=== PATIENT | male | born 1965 | race Caucasian/White ===

== ENCOUNTER 2017-05-27 03:26 | Inpatient (IN) | payer MEDICARE, MEDICAID ==
[~2017-05-27] VITALS: Ht 170.2 cm; Wt 68.2 kg
[2017-05-27] VITALS (8 sets, daily range): BP systolic 81–98; BP diastolic 45–64
[2017-05-27] MEDS ORDERED: MORPHINE SULFATE 4 MG/ML CPJ (NOT FOR IM USE) IV STA (03:58)
[2017-05-27] MEDS ORDERED: SODIUM CHLORIDE 0.9% 1,000 ML IV ONE ×2 (03:58→06:04)
[2017-05-27] MEDS ORDERED: ONDANSETRON HCL 4MG/2ML VIAL IV STA (03:58)
[2017-05-27 04:30] LABS: BASOPHILS % 0.2 % (0.0-2.0); EOSINOPHILS % 0.9 % (0.0-5.0); HEMATOCRIT. 43.3 % (42.0-52.0); HEMOGLOBIN. 14.4 g/dL (14.0-18.0); LYMPHOCYTES % 8.7 % (20.0-50.0); MEAN CORPUSCULAR HEMOGLOBIN 30.1 pg (28.0-32.0); MEAN CORPUSCULAR VOLUME 90.8 fL (80.0-94.0); MEAN PLATELET VOLUME 10.7 fl (7.4-10.4); MONOCYTES % 10.4 % (2.0-8.0); NEUTROPHILS % 79.8 % (40.0-76.0); PLATELET 260 x1000/uL (130-400); RED BLOOD CELL COUNT 4.77 mill/uL (4.7-6.1); RED CELL DISTRIBUTION WIDTH 14.6 % (11.6-14.6)
[2017-05-27 04:36] LABS: INR 1.1
[2017-05-27 04:43] LABS: CARBON DIOXIDE 25 mEq/L (21-32); CHLORIDE 106 mEq/L (98-107)
[2017-05-27] MEDS ORDERED: PIPERACILLIN/TAZ 3.375G PREMIX 50 ML IV ONE (06:15)
[2017-05-27] MEDS ORDERED: VANCOMYCIN 1 G PREMIX 200 ML IV SCH (06:15)
[2017-05-27] MEDS ORDERED: HYDROMORPHONE HCL/PF 2MG/ML CPJ IV PRN (09:15)
[2017-05-27] MEDS ORDERED: IPRATROPIUM/ALBUTEROL 0.5-3(2.5)MG/3ML NEB HHN PRN (09:15)
[2017-05-27 09:28] LABS: GLUCOSE URINE NEGATIVE (NEGATIVE); KETONES URINE 2+ (NEGATIVE); LEUKOCYTE ESTERASE URINE 3+ (NEGATIVE); NITRITE URINE POSITIVE (NEGATIVE); OCCULT BLOOD URINE 3+ (NEGATIVE); PH URINE 7.5 (4.5-8.0); PROTEIN URINE 3+ (NEGATIVE); SPECIFIC GRAVITY URINE 1.013 (1.005-1.030)
[2017-05-27 09:31] LABS: CLARITY URINE CLOUDY (CLEAR); COLOR URINE BLOODY (YELLOW)
[2017-05-27] MEDS: SODIUM CHLORIDE 0.9% 1,000 ML IV SCH ×2 (11:55→21:02)
[2017-05-27] MEDS: VANCOMYCIN 1 G PREMIX 200 ML IV SCH ×2 (11:55→21:38)
[2017-05-27] MEDS ORDERED: ACETAMINOPHEN 500MG TABLET GT PRN (12:00)
[2017-05-27] MEDS: PIPERACILLIN/TAZ 3.375G PREMIX 50 ML IV SCH ×2 (13:22→23:39)
[2017-05-27] MEDS ORDERED: SODIUM CHLORIDE 0.9% 500 ML IV ONE (16:15)
[2017-05-27] MEDS ORDERED: GUAIFENESIN 200MG/10ML SUGAR FREE UDC NG PRN (16:30)
[2017-05-27] MEDS: ENOXAPARIN 40MG/0.4ML SYR SUBCUT SCH (16:41)
[2017-05-27] MEDS: MIDODRINE HCL 5MG TABLET PO SCH (16:45)
[2017-05-27 17:10] LABS: BG BASE EXCESS 0.6 mmol/L (-2.0-2.0); BG CARBOXYHEMOGLOBIN 0.3 % (0.5-1.5); BG DEOXYHEMOGLOBIN 2.2 % (0.0-5.0); BG FRACTION INSPIRED OXYGEN 30; BG HCO3 ACT 24.5 mmol/L (22.0-26.0); BG METHEMOGLOBIN 0.1 % (0.0-1.5); BG OXYGEN SATURATION 97.8 % (92.0-98.5); BG OXYHEMOGLOBIN 97.4 % (94.0-97.0); BG PH 7.438 (7.350-7.450); BG PO2 102.4 mmHg (75.0-100.0); BG SAMPLE SITE RIGHT RADIAL; BG TIDAL VOLUME(mL) 500 mL; BG TOTAL HEMOGLOBIN 13.5 g/dL (12.0-18.0); BG VENT MODE VENT - A/C; BG VENT RATE 12 set
[2017-05-27] MEDS ORDERED: SODIUM CHLORIDE 10% FOR INH 15ML VIAL NEB INH NR (18:00)
[2017-05-27] MEDS: DOPAMINE 400MG PREMIX 250 ML IV SCH (20:02)
[2017-05-27] MEDS: IPRATROPIUM/ALBUTEROL 0.5-3(2.5)MG/3ML NEB HHN SCH (20:08)
[2017-05-28] VITALS (12 sets, daily range): BP systolic 78–107; BP diastolic 43–71
[2017-05-28] MEDS: ACETYLCYSTEINE 100MG/ML 10% VIAL 4ML INH SCH ×2 (02:08→14:26)
[2017-05-28] MEDS: IPRATROPIUM/ALBUTEROL 0.5-3(2.5)MG/3ML NEB HHN SCH ×4 (02:09→16:32)
[2017-05-28] MEDS: MIDODRINE HCL 5MG TABLET PO SCH ×2 (03:30→17:43)
[2017-05-28] MEDS: VANCOMYCIN 1 G PREMIX 200 ML IV SCH ×2 (03:31→11:15)
[2017-05-28] MEDS: PIPERACILLIN/TAZ 3.375G PREMIX 50 ML IV SCH ×4 (05:57→23:54)
[2017-05-28] MEDS: SODIUM CHLORIDE 0.9% 1,000 ML IV SCH (05:57)
[2017-05-28 08:37] LABS: HEMATOCRIT. 31.1 % (42.0-52.0); MEAN CORPUSCULAR HEMOGLOBIN 29.5 pg (28.0-32.0); MEAN CORPUSCULAR VOLUME 91.4 fL (80.0-94.0); MEAN PLATELET VOLUME 10.9 fl (7.4-10.4); PLATELET 161 x1000/uL (130-400); RED BLOOD CELL COUNT 3.41 mill/uL (4.7-6.1); RED CELL DISTRIBUTION WIDTH 14.6 % (11.6-14.6)
[2017-05-28 08:38] LABS: CHLORIDE 110 mEq/L (98-107)
[2017-05-28 08:44] LABS: CARBON DIOXIDE 22 mEq/L (21-32)
[2017-05-28] MEDS: PANTOPRAZOLE SODIUM 40 MG/VIAL IV SCH (08:59)
[2017-05-28 10:18] LABS: BG BASE EXCESS 2.1 mmol/L (-2.0-2.0); BG CARBOXYHEMOGLOBIN 0.3 % (0.5-1.5); BG DEOXYHEMOGLOBIN 2.1 % (0.0-5.0); BG FRACTION INSPIRED OXYGEN 30; BG HCO3 ACT 26.1 mmol/L (22.0-26.0); BG METHEMOGLOBIN 0.1 % (0.0-1.5); BG OXYGEN SATURATION 97.9 % (92.0-98.5); BG OXYHEMOGLOBIN 97.5 % (94.0-97.0); BG PCO2 38.7 mmHg (35.0-45.0); BG PH 7.447 (7.350-7.450); BG PO2 114.9 mmHg (75.0-100.0); BG SAMPLE SITE RIGHT RADIAL; BG TIDAL VOLUME(mL) 500 mL; BG TOTAL HEMOGLOBIN 11.9 g/dL (12.0-18.0); BG VENT MODE VENT - A/C; BG VENT RATE 12 set
[2017-05-28] MEDS: DEXT 5%/0.45% NACL KCL 40MEQ/L 1,000 ML IV SCH ×2 (11:16→18:25)
[2017-05-28 12:26] LABS: PLATELET ESTIMATE NORMAL
[2017-05-28] MEDS ORDERED: SODIUM CHLORIDE 0.9% 1,000 ML IV ONE (13:30)
[2017-05-28] MEDS ORDERED: POTASSIUM CHLORIDE 20MEQ/PACKET NG SCH (13:45)
[2017-05-28] MEDS: ENOXAPARIN 40MG/0.4ML SYR SUBCUT SCH (17:00)
[2017-05-28] MEDS: DOPAMINE 400MG PREMIX 250 ML IV SCH (17:45)
[2017-05-28] MEDS: IPRATROPIUM/ALBUTEROL 0.5-3(2.5)MG/3ML NEB HHN PRN (20:08)
[2017-05-28] MEDS ORDERED: VANCOMYCIN 750 MG PREMIX 150 ML IV SCH (22:00)
[2017-05-29] VITALS (12 sets, daily range): BP systolic 87–112; BP diastolic 44–74
[2017-05-29] MEDS: IPRATROPIUM/ALBUTEROL 0.5-3(2.5)MG/3ML NEB HHN SCH ×4 (00:26→21:05)
[2017-05-29] MEDS: ACETYLCYSTEINE 100MG/ML 10% VIAL 4ML INH SCH ×5 (00:26→21:05)
[2017-05-29] MEDS: MIDODRINE HCL 5MG TABLET PO SCH ×2 (03:44→17:40)
[2017-05-29] MEDS: DEXT 5%/0.45% NACL KCL 40MEQ/L 1,000 ML IV SCH ×3 (03:45→19:29)
[2017-05-29] MEDS: PIPERACILLIN/TAZ 3.375G PREMIX 50 ML IV SCH ×3 (07:18→19:30)
[2017-05-29 07:42] LABS: HEMATOCRIT. 32.7 % (42.0-52.0); HEMOGLOBIN. 10.9 g/dL (14.0-18.0); MEAN CORPUSCULAR VOLUME 90.5 fL (80.0-94.0); MEAN PLATELET VOLUME 10.7 fl (7.4-10.4); PLATELET 121 x1000/uL (130-400); RED BLOOD CELL COUNT 3.61 mill/uL (4.7-6.1); RED CELL DISTRIBUTION WIDTH 14.4 % (11.6-14.6)
[2017-05-29 08:22] LABS: CARBON DIOXIDE 25 mEq/L (21-32); CHLORIDE 107 mEq/L (98-107); PHOSPHORUS 1.5 mg/dL (2.5-4.9)
[2017-05-29] MEDS: PANTOPRAZOLE SODIUM 40 MG/VIAL IV SCH (09:18)
[2017-05-29 10:07] LABS: PLATELET ESTIMATE NORMAL
[2017-05-29] MEDS ORDERED: LACTULOSE 20G/30ML UDC GT PRN (10:30)
[2017-05-29] MEDS ORDERED: MAGNESIUM 2 G PREMIX 50 ML IV NR (11:30)
[2017-05-29] MEDS ORDERED: POTASSIUM PHOS,M-BASIC-D-BASIC 20 MMOL in DEXT 5% WATER 243.3333 ML IV SCH (12:00)
[2017-05-29] MEDS ORDERED: LIDOCAINE HCL 1% 20ML VIAL (Pyxis) INJ ONE (12:13)
[2017-05-29] MEDS ORDERED: B50 GT (12:58)
[2017-05-29] MEDS ORDERED: DEXT15DR5 EACHEYE (12:58)
[2017-05-29] MEDS ORDERED: ACET-2128 PO (12:58)
[2017-05-29] MEDS ORDERED: LORA1TAB PO (12:58)
[2017-05-29] MEDS ORDERED: CRAN200C PO (12:58)
[2017-05-29] MEDS ORDERED: FLUD0.1T PO (12:58)
[2017-05-29] MEDS ORDERED: HYDR-523 PO (12:58)
[2017-05-29] MEDS ORDERED: ALBUMIN HUMAN 12.5G/250ML (5%) IV NR (14:30)
[2017-05-29] MEDS: IPRATROPIUM/ALBUTEROL 0.5-3(2.5)MG/3ML NEB HHN PRN (15:50)
[2017-05-29] MEDS: ENOXAPARIN 40MG/0.4ML SYR SUBCUT SCH (17:00)
[2017-05-30] VITALS (12 sets, daily range): BP systolic 86–103; BP diastolic 50–79
[2017-05-30] MEDS: PIPERACILLIN/TAZ 3.375G PREMIX 50 ML IV SCH ×4 (00:08→17:17)
[2017-05-30] MEDS: IPRATROPIUM/ALBUTEROL 0.5-3(2.5)MG/3ML NEB HHN SCH ×5 (02:16→20:15)
[2017-05-30] MEDS: MIDODRINE HCL 5MG TABLET PO SCH ×2 (03:28→16:23)
[2017-05-30] MEDS: DEXT 5%/0.45% NACL KCL 40MEQ/L 1,000 ML IV SCH ×3 (03:28→18:36)
[2017-05-30 06:41] LABS: HEMATOCRIT. 31.1 % (42.0-52.0); HEMOGLOBIN. 10.4 g/dL (14.0-18.0); MEAN CORPUSCULAR HEMOGLOBIN 30.1 pg (28.0-32.0); MEAN CORPUSCULAR VOLUME 90.1 fL (80.0-94.0); MEAN PLATELET VOLUME 10.7 fl (7.4-10.4); PLATELET 119 x1000/uL (130-400); RED BLOOD CELL COUNT 3.46 mill/uL (4.7-6.1); RED CELL DISTRIBUTION WIDTH 14.1 % (11.6-14.6)
[2017-05-30 07:16] LABS: CARBON DIOXIDE 24 mEq/L (21-32); CHLORIDE 107 mEq/L (98-107); PHOSPHORUS 1.6 mg/dL (2.5-4.9)
[2017-05-30] MEDS: ACETYLCYSTEINE 100MG/ML 10% VIAL 4ML INH SCH ×2 (08:04→15:53)
[2017-05-30] MEDS: FAMOTIDINE 20MG/2ML VIAL IV SCH ×2 (09:59→20:57)
[2017-05-30] MEDS ORDERED: POTASSIUM PHOS,M-BASIC-D-BASIC 20 MMOL in DEXT 5% WATER 243.3333 ML IV NR (13:30)
[2017-05-30 16:04] LABS: PLATELET ESTIMATE DECREASED
[2017-05-30] MEDS: ENOXAPARIN 40MG/0.4ML SYR SUBCUT SCH (16:22)
[2017-05-31] VITALS (13 sets, daily range): BP systolic 91–139; BP diastolic 41–74
[2017-05-31] MEDS: PIPERACILLIN/TAZ 3.375G PREMIX 50 ML IV SCH ×3 (00:28→11:46)
[2017-05-31] MEDS: ACETYLCYSTEINE 100MG/ML 10% VIAL 4ML INH SCH ×4 (00:45→14:54)
[2017-05-31] MEDS: IPRATROPIUM/ALBUTEROL 0.5-3(2.5)MG/3ML NEB HHN SCH ×4 (01:51→20:41)
[2017-05-31] MEDS: DEXT 5%/0.45% NACL KCL 40MEQ/L 1,000 ML IV SCH ×3 (04:07→19:50)
[2017-05-31] MEDS: MIDODRINE HCL 5MG TABLET PO SCH ×2 (04:08→16:29)
[2017-05-31 07:50] LABS: BASOPHILS % 0.6 % (0.0-2.0); EOSINOPHILS % 6.5 % (0.0-5.0); HEMATOCRIT. 32.6 % (42.0-52.0); HEMOGLOBIN. 10.9 g/dL (14.0-18.0); LYMPHOCYTES % 17.1 % (20.0-50.0); MEAN CORPUSCULAR HEMOGLOBIN 30.1 pg (28.0-32.0); MEAN CORPUSCULAR VOLUME 90.3 fL (80.0-94.0); MONOCYTES % 13.5 % (2.0-8.0); NEUTROPHILS % 62.3 % (40.0-76.0); PLATELET 122 x1000/uL (130-400); RED BLOOD CELL COUNT 3.61 mill/uL (4.7-6.1); RED CELL DISTRIBUTION WIDTH 14.5 % (11.6-14.6)
[2017-05-31 08:00] LABS: CARBON DIOXIDE 25 mEq/L (21-32); CHLORIDE 106 mEq/L (98-107); PHOSPHORUS 2.6 mg/dL (2.5-4.9)
[2017-05-31] MEDS: FAMOTIDINE 20MG/2ML VIAL IV SCH ×2 (10:12→21:28)
[2017-05-31] MEDS: ENOXAPARIN 40MG/0.4ML SYR SUBCUT SCH (16:29)
[2017-05-31] MEDS: MEROPENEM 1,000 MG in SODIUM CHLORIDE 0.9% 100 ML IV SCH ×2 (16:38→21:28)
[2017-06-01] VITALS (11 sets, daily range): BP systolic 95–138; BP diastolic 62–70
[2017-06-01] MEDS: IPRATROPIUM/ALBUTEROL 0.5-3(2.5)MG/3ML NEB HHN SCH ×4 (02:28→20:29)
[2017-06-01] MEDS: DEXT 5%/0.45% NACL KCL 40MEQ/L 1,000 ML IV SCH ×2 (03:34→11:56)
[2017-06-01] MEDS: MIDODRINE HCL 5MG TABLET PO SCH ×2 (03:37→18:37)
[2017-06-01] MEDS: MEROPENEM 1,000 MG in SODIUM CHLORIDE 0.9% 100 ML IV SCH ×3 (05:17→21:01)
[2017-06-01 05:56] LABS: BASOPHILS % 0.6 % (0.0-2.0); EOSINOPHILS % 7.2 % (0.0-5.0); HEMATOCRIT. 34.4 % (42.0-52.0); HEMOGLOBIN. 11.4 g/dL (14.0-18.0); LYMPHOCYTES % 16.4 % (20.0-50.0); MEAN CORPUSCULAR HEMOGLOBIN 29.9 pg (28.0-32.0); MEAN CORPUSCULAR VOLUME 90.6 fL (80.0-94.0); MONOCYTES % 11.9 % (2.0-8.0); NEUTROPHILS % 63.9 % (40.0-76.0); PLATELET 155 x1000/uL (130-400); RED CELL DISTRIBUTION WIDTH 14.5 % (11.6-14.6)
[2017-06-01 07:05] LABS: CARBON DIOXIDE 25 mEq/L (21-32); CHLORIDE 107 mEq/L (98-107)
[2017-06-01] MEDS: ACETYLCYSTEINE 100MG/ML 10% VIAL 4ML INH SCH ×3 (08:02→20:29)
[2017-06-01] MEDS: FAMOTIDINE 20MG/2ML VIAL IV SCH ×2 (11:56→21:01)
[2017-06-01] MEDS: ENOXAPARIN 40MG/0.4ML SYR SUBCUT SCH (18:37)
[2017-06-01] MEDS ORDERED: HYDROCORTISONE 20MG TABLET GT SCH (19:00)
[2017-06-02] VITALS (8 sets, daily range): BP systolic 103–135; BP diastolic 70–85
[2017-06-02] MEDS: IPRATROPIUM/ALBUTEROL 0.5-3(2.5)MG/3ML NEB HHN SCH ×2 (01:33→08:09)
[2017-06-02] MEDS: MIDODRINE HCL 5MG TABLET PO SCH (04:11)
[2017-06-02] MEDS: MEROPENEM 1,000 MG in SODIUM CHLORIDE 0.9% 100 ML IV SCH ×2 (05:05→13:47)
[2017-06-02] MEDS ORDERED: HYDROCORTISONE 20MG TABLET GT SCH (07:00)
[2017-06-02] MEDS: FAMOTIDINE 20MG/2ML VIAL IV SCH (09:16)
== END 2017-06-02 18:16 | DRG 870 ==
LOC: ER 04:08 → 5EST 05:12 → EDBEDREQ 05:22 → ENRESERV 07:28
PROVIDERS: ADMIT Internal Medicine; ATTEND Internal Medicine
PROC: 5A1955Z Respiratory Ventilation, Greater than 96 Consecutive Hours (ICD-10-PCS; principal; 2017-05-27)
PROC: 0T2BX0Z Change Drainage Device in Bladder, External Approach (ICD-10-PCS; 2017-05-27)
PROC: 02HV33Z Insertion of Infusion Device into Superior Vena Cava, Percutaneous Approach (ICD-10-PCS; 2017-05-29)
PROC: B5181ZA Fluoroscopy of Superior Vena Cava using Low Osmolar Contrast, Guidance (ICD-10-PCS; 2017-05-29)
PROC: B548ZZA Ultrasonography of Superior Vena Cava, Guidance (ICD-10-PCS; 2017-05-29)
DX: A41.50 Gram-negative sepsis, unspecified (principal); J96.20 Acute and chronic respiratory failure, unspecified whether with hypoxia or hypercapnia; R65.21 Severe sepsis with septic shock; Z99.11 Dependence on respirator [ventilator] status; J18.9 Pneumonia, unspecified organism; J44.0 Chronic obstructive pulmonary disease with (acute) lower respiratory infection; G93.49 Other encephalopathy; N39.0 Urinary tract infection, site not specified; T83.091A Other mechanical complication of indwelling urethral catheter, initial encounter; N20.0 Calculus of kidney; Z66 Do not resuscitate; L89.90 Pressure ulcer of unspecified site, unspecified stage; D64.9 Anemia, unspecified; K59.00 Constipation, unspecified; Y73.8 Miscellaneous gastroenterology and urology devices associated with adverse incidents, not elsewhere classified; Z16.12 Extended spectrum beta lactamase (ESBL) resistance; Z93.0 Tracheostomy status; Z93.1 Gastrostomy status
CPT/HCPCS: 36415; 36569; 36600; 71010; 74176; 77001; 80048; 80053; 80202; 81001; 82375; 82533; 82805; 83605; 83735; 84100; 85025; 85610; 87040; 87070; 87077; 87086; 87186; 94002; 94003; 94640; 96361; 96365; 96375; 99291; C1725; C9113; J1265; J1650; J2185; J2270; J2405; J2543; J3370; J3475; J3490; J7030; J7050; J7060; J7131; J7608; J7620; P9041

== ENCOUNTER 2020-03-12 10:01 | Inpatient (IN) | payer MEDICARE, MEDICAID ==
[~2020-03-12] VITALS: Ht 175.3 cm; Wt 82.1 kg
[~2020-03-12 10:01] MED LIST: ACET-2128 PO; B50 GT; CRAN200C PO; DEXT15DR5 EACHEYE; FLUD0.1T PO; HYDR-523 PO; LORA1TAB PO
[2020-03-12] MEDS ORDERED: VANCOMYCIN 1 G PREMIX 200 ML IV ONE (10:45)
[2020-03-12] MEDS ORDERED: PIPERACILLIN/TAZ 3.375G PREMIX 50 ML IV ONE (10:45)
[2020-03-12 11:04] LABS: BASOPHILS % 0.9 % (0.0-2.0); EOSINOPHILS % 2.8 % (0.0-5.0); HEMATOCRIT. 42.4 % (42.0-52.0); HEMOGLOBIN. 14.4 g/dL (14.0-18.0); LYMPHOCYTES % 27.8 % (20.0-50.0); MEAN CORPUSCULAR HEMOGLOBIN 30.6 pg (28.0-32.0); MEAN CORPUSCULAR VOLUME 90.3 fL (80.0-94.0); MEAN PLATELET VOLUME 9.6 fl (7.4-10.4); MONOCYTES % 10.6 % (2.0-8.0); NEUTROPHILS % 57.9 % (40.0-76.0); PLATELET 203 x1000/uL (130-400); RED BLOOD CELL COUNT 4.69 mill/uL (4.7-6.1); RED CELL DISTRIBUTION WIDTH 14.7 % (11.6-14.6)
[2020-03-12 11:12] LABS: CHLORIDE 107 mEq/L (98-107)
[2020-03-12 11:17] LABS: CLARITY URINE TURBID (CLEAR); COLOR URINE YELLOW (YELLOW); KETONES URINE NEGATIVE (NEGATIVE); LEUKOCYTE ESTERASE URINE 2+ (NEGATIVE); NITRITE URINE NEGATIVE (NEGATIVE); OCCULT BLOOD URINE TRACE (NEGATIVE); PH URINE >=9.0 (4.5-8.0); PROTEIN URINE NEGATIVE (NEGATIVE); SPECIFIC GRAVITY URINE 1.012 (1.005-1.030)
[2020-03-12 11:22] LABS: PROTHROMBIN TIME 10.6 sec (9.6-11.0)
[2020-03-12 12:50] LABS: BG BASE EXCESS 2.2 mmol/L (-2.0-2.0); BG DEOXYHEMOGLOBIN 0.2 % (0.0-5.0); BG FRACTION INSPIRED OXYGEN 40; BG HCO3 ACT 24.4 mmol/L (22.0-26.0); BG METHEMOGLOBIN 0.4 % (0.0-1.5); BG OXYGEN SATURATION 99.8 % (92.0-98.5); BG OXYHEMOGLOBIN 99.4 % (94.0-97.0); BG PCO2 31.7 mmHg (35.0-45.0); BG PH 7.504 (7.350-7.450); BG PO2 450.7 mmHg (75.0-100.0); BG SAMPLE SITE LEFT RADIAL; BG TIDAL VOLUME(mL) 550 mL; BG TOTAL HEMOGLOBIN 16.9 g/dL (12.0-18.0); BG VENT MODE VENT - A/C; BG VENT RATE 14 set
[2020-03-12] MEDS ORDERED: SODIUM CHLORIDE 0.9% 1,000 ML IV SCH (15:45)
[2020-03-12] MEDS ORDERED: CEFAZOLIN 1000MG PREMIX 50 ML IV SCH (16:00)
[2020-03-12] MEDS ORDERED: IPRATROPIUM/ALBUTEROL 0.5-3(2.5)MG/3ML NEB HHN PRN (21:00)
[2020-03-12] MEDS: PANTOPRAZOLE SODIUM 40 MG/VIAL IV SCH (21:42)
[2020-03-12 23:49] VITALS: BP 100/77
[2020-03-13] VITALS (12 sets, daily range): BP systolic 89–112; BP diastolic 39–74
[2020-03-13] MEDS ORDERED: IPRATROPIUM/ALBUTEROL 0.5-3(2.5)MG/3ML NEB HHN PRN (00:15)
[2020-03-13] MEDS ORDERED: VANCOMYCIN 1 G PREMIX 200 ML IV SCH (00:15)
[2020-03-13] MEDS ORDERED: DEXT 5%/0.9% NACL 1,000 ML IV SCH (01:00)
[2020-03-13] MEDS: IPRATROPIUM/ALBUTEROL 0.5-3(2.5)MG/3ML NEB HHN SCH ×4 (01:07→20:55)
[2020-03-13] MEDS: PIPERACILLIN/TAZOBACTAM 3.375 G in DEXT 5% WATER 100 ML IV SCH ×3 (05:07→22:20)
[2020-03-13 05:44] LABS: PARTIAL THROMBOPLASTIN TIME 27.9 sec (23.4-31.0); PROTHROMBIN TIME 10.9 sec (9.6-11.0)
[2020-03-13] MEDS: VANCOMYCIN 1500MG in DEXTROSE 5% WATER 250ML IV SCH ×2 (05:59→21:01)
[2020-03-13] MEDS ORDERED: PIPERACILLIN/TAZOBACTAM 3.375 G/VIAL IV SCH (06:00)
[2020-03-13 06:15] LABS: BASOPHILS % 0.8 % (0.0-2.0); EOSINOPHILS % 2.2 % (0.0-5.0); HEMATOCRIT. 44.7 % (42.0-52.0); HEMOGLOBIN. 15.4 g/dL (14.0-18.0); LYMPHOCYTES % 20.2 % (20.0-50.0); MEAN CORPUSCULAR HEMOGLOBIN 31.3 pg (28.0-32.0); MEAN CORPUSCULAR VOLUME 90.6 fL (80.0-94.0); MONOCYTES % 10.6 % (2.0-8.0); NEUTROPHILS % 66.2 % (40.0-76.0); PLATELET 213 x1000/uL (130-400); RED BLOOD CELL COUNT 4.93 mill/uL (4.7-6.1); RED CELL DISTRIBUTION WIDTH 14.4 % (11.6-14.6)
[2020-03-13 06:26] LABS: CHLORIDE 110 mEq/L (98-107)
[2020-03-13] MEDS: PANTOPRAZOLE SODIUM 40 MG/VIAL IV SCH ×2 (08:29→21:00)
[2020-03-13] MEDS: DEXT 5%/0.45% NACL KCL 20MEQ/L 1,000 ML IV SCH ×2 (11:09→21:00)
[2020-03-13] MEDS: HYDROCORTISONE SOD SUCCINATE 100 MG/2 ML VIAL IV SCH ×2 (13:43→22:20)
[2020-03-13] MEDS ORDERED: MIDAZOLAM HCL 5 MG/5 ML VIAL IV PRN (13:54)
[2020-03-13] MEDS ORDERED: FENTANYL CITRATE/PF 50MCG/ML 2ML VIAL ONE (13:55)
[2020-03-13] MEDS ORDERED: MIDAZOLAM HCL 5 MG/5 ML VIAL ONE (13:55)
[2020-03-14] VITALS (12 sets, daily range): BP systolic 85–141; BP diastolic 56–82
[2020-03-14] MEDS: IPRATROPIUM/ALBUTEROL 0.5-3(2.5)MG/3ML NEB HHN SCH ×4 (01:17→19:48)
[2020-03-14] MEDS ORDERED: KEPPSOL GT (03:51)
[2020-03-14] MEDS ORDERED: OMEP20CA14 PO (04:02)
[2020-03-14] MEDS ORDERED: MULT9LIQ6 PO (04:02)
[2020-03-14] MEDS ORDERED: VIT500LI PO (04:02)
[2020-03-14] MEDS ORDERED: POLY17PO28 PO (04:02)
[2020-03-14] MEDS ORDERED: BISA10SU62 RC (04:02)
[2020-03-14] MEDS ORDERED: MIDO5TAB4 MT (04:02)
[2020-03-14] MEDS ORDERED: MAGN24002 PO (04:02)
[2020-03-14] MEDS ORDERED: NAPH1POW3 PO (04:02)
[2020-03-14] MEDS ORDERED: LACT10SO7 MT (04:02)
[2020-03-14 05:32] LABS: CHLORIDE 110 mEq/L (98-107)
[2020-03-14 05:33] LABS: HEMATOCRIT. 40.7 % (42.0-52.0); HEMOGLOBIN. 13.8 g/dL (14.0-18.0); MEAN CORPUSCULAR HEMOGLOBIN 30.9 pg (28.0-32.0); MEAN PLATELET VOLUME 10.1 fl (7.4-10.4); PLATELET 199 x1000/uL (130-400); RED BLOOD CELL COUNT 4.47 mill/uL (4.7-6.1); RED CELL DISTRIBUTION WIDTH 14.6 % (11.6-14.6)
[2020-03-14 05:39] LABS: PHOSPHORUS 2.5 mg/dL (2.5-4.9)
[2020-03-14] MEDS: PIPERACILLIN/TAZOBACTAM 3.375 G in DEXT 5% WATER 100 ML IV SCH (05:40)
[2020-03-14] MEDS: HYDROCORTISONE SOD SUCCINATE 100 MG/2 ML VIAL IV SCH (05:40)
[2020-03-14] MEDS: DEXT 5%/0.45% NACL KCL 20MEQ/L 1,000 ML IV SCH ×2 (08:19→17:01)
[2020-03-14] MEDS: MIDODRINE HCL 5MG TABLET PO SCH ×3 (08:20→17:58)
[2020-03-14] MEDS: PANTOPRAZOLE SODIUM 40 MG/VIAL IV SCH ×2 (08:22→21:12)
[2020-03-14 08:23] LABS: PLATELET ESTIMATE NORMAL
[2020-03-14] MEDS: LEVETIRACETAM 500MG/5ML CUP PO SCH ×2 (09:37→21:12)
[2020-03-14] MEDS ORDERED: LIDOCAINE HCL 1% 20ML VIAL (Pyxis) INJ ONE (11:14)
[2020-03-14] MEDS: MEROPENEM 1000MG in NORMAL SALINE 100ML IV SCH ×2 (13:29→21:12)
[2020-03-14] MEDS: HYDROCORTISONE 10MG TABLET GT SCH (18:00)
[2020-03-15] VITALS (12 sets, daily range): BP systolic 83–137; BP diastolic 53–77
[2020-03-15] MEDS: IPRATROPIUM/ALBUTEROL 0.5-3(2.5)MG/3ML NEB HHN SCH ×4 (02:21→20:40)
[2020-03-15] MEDS: DEXT 5%/0.45% NACL KCL 20MEQ/L 1,000 ML IV SCH ×3 (03:00→23:00)
[2020-03-15] MEDS: MEROPENEM 1000MG in NORMAL SALINE 100ML IV SCH ×3 (05:55→21:03)
[2020-03-15 07:10] LABS: BASOPHILS % 0.4 % (0.0-2.0); EOSINOPHILS % 0.7 % (0.0-5.0); HEMOGLOBIN. 12.6 g/dL (14.0-18.0); LYMPHOCYTES % 11.8 % (20.0-50.0); MEAN CORPUSCULAR HEMOGLOBIN 31.2 pg (28.0-32.0); MEAN PLATELET VOLUME 10.2 fl (7.4-10.4); MONOCYTES % 14.8 % (2.0-8.0); NEUTROPHILS % 72.3 % (40.0-76.0); PLATELET 159 x1000/uL (130-400); RED BLOOD CELL COUNT 4.03 mill/uL (4.7-6.1); RED CELL DISTRIBUTION WIDTH 14.4 % (11.6-14.6)
[2020-03-15] MEDS: MIDODRINE HCL 5MG TABLET PO SCH ×3 (08:05→16:48)
[2020-03-15] MEDS: LEVETIRACETAM 500MG/5ML CUP PO SCH ×2 (08:05→21:02)
[2020-03-15] MEDS: HYDROCORTISONE 10MG TABLET GT SCH ×2 (08:06→17:02)
[2020-03-15] MEDS: PANTOPRAZOLE SODIUM 40 MG/VIAL IV SCH (10:23)
[2020-03-15] MEDS: ACETAMINOPHEN 650MG/20.3ML UDC PO PRN (21:04)
[2020-03-16] VITALS (12 sets, daily range): BP systolic 64–132; BP diastolic 38–75
[2020-03-16] MEDS: IPRATROPIUM/ALBUTEROL 0.5-3(2.5)MG/3ML NEB HHN SCH ×4 (02:20→21:06)
[2020-03-16] MEDS: MEROPENEM 1000MG in NORMAL SALINE 100ML IV SCH ×3 (05:59→21:02)
[2020-03-16 06:13] LABS: HEMATOCRIT. 39.1 % (42.0-52.0); MEAN CORPUSCULAR HEMOGLOBIN 30.9 pg (28.0-32.0); MEAN PLATELET VOLUME 9.9 fl (7.4-10.4); PLATELET 151 x1000/uL (130-400); RED BLOOD CELL COUNT 4.21 mill/uL (4.7-6.1); RED CELL DISTRIBUTION WIDTH 14.8 % (11.6-14.6)
[2020-03-16] MEDS: MIDODRINE HCL 5MG TABLET PO SCH ×3 (08:22→18:07)
[2020-03-16] MEDS: HYDROCORTISONE 10MG TABLET GT SCH ×2 (08:22→18:07)
[2020-03-16] MEDS: LEVETIRACETAM 500MG/5ML CUP PO SCH ×2 (08:23→21:01)
[2020-03-16] MEDS: DEXT 5%/0.45% NACL KCL 20MEQ/L 1,000 ML IV SCH (08:23)
[2020-03-16] MEDS ORDERED: PANTOPRAZOLE SODIUM 40 MG/VIAL IV SCH (09:00)
[2020-03-16 13:15] LABS: PLATELET ESTIMATE NORMAL
[2020-03-16] MEDS ORDERED: DIATR MEGLU/DIATRIZOATE SOLN 30ML PO SCH (15:30)
[2020-03-16] MEDS: SODIUM CHLORIDE 0.45% 1,000 ML IV SCH (17:34)
[2020-03-16] MEDS ORDERED: AMIKACIN 500MG in SODIUM CHLORIDE 0.9% 100ML IV SCH (18:30)
[2020-03-16] MEDS ORDERED: LORAZEPAM 2MG/ML CPJ IV PRN (19:15)
[2020-03-16] MEDS: ACETAMINOPHEN 650MG/20.3ML UDC PO PRN (19:19)
[2020-03-16] MEDS: FAMOTIDINE 20MG TABLET GT SCH (21:01)
[2020-03-16 22:55] LABS: CLARITY URINE CLEAR (CLEAR); COLOR URINE YELLOW (YELLOW); KETONES URINE NEGATIVE (NEGATIVE); LEUKOCYTE ESTERASE URINE 1+ (NEGATIVE); NITRITE URINE NEGATIVE (NEGATIVE); OCCULT BLOOD URINE 3+ (NEGATIVE); PH URINE 5.5 (4.5-8.0); PROTEIN URINE 1+ (NEGATIVE); SPECIFIC GRAVITY URINE 1.013 (1.005-1.030); UROBILINOGEN URINE 0.2 E.U./dL (0.2-1.0)
[2020-03-17] VITALS (12 sets, daily range): BP systolic 73–131; BP diastolic 40–72
[2020-03-17] MEDS: IPRATROPIUM/ALBUTEROL 0.5-3(2.5)MG/3ML NEB HHN SCH ×4 (01:11→20:07)
[2020-03-17] MEDS: MEROPENEM 1000MG in NORMAL SALINE 100ML IV SCH ×2 (05:13→13:24)
[2020-03-17] MEDS: SODIUM CHLORIDE 0.45% 1,000 ML IV SCH ×2 (05:13→13:24)
[2020-03-17 06:14] LABS: HEMATOCRIT. 34.1 % (42.0-52.0); HEMOGLOBIN. 11.5 g/dL (14.0-18.0); MEAN CORPUSCULAR HEMOGLOBIN 30.9 pg (28.0-32.0); MEAN CORPUSCULAR VOLUME 91.7 fL (80.0-94.0); PLATELET 127 x1000/uL (130-400); RED BLOOD CELL COUNT 3.72 mill/uL (4.7-6.1); RED CELL DISTRIBUTION WIDTH 15.3 % (11.6-14.6)
[2020-03-17] MEDS: HYDROCORTISONE 10MG TABLET GT SCH (08:52)
[2020-03-17] MEDS: MIDODRINE HCL 5MG TABLET PO SCH ×3 (08:53→18:48)
[2020-03-17] MEDS: LEVETIRACETAM 500MG/5ML CUP PO SCH ×2 (08:53→21:40)
[2020-03-17] MEDS ORDERED: RACEPINEPHRINE 2.25% 0.5ML NEB VIAL HHN PRN (10:45)
[2020-03-17] MEDS ORDERED: DIATR MEGLU/DIATRIZOATE SOLN 30ML PO NR (13:15)
[2020-03-17] MEDS: HYDROCORTISONE SOD SUCCINATE 100 MG/2 ML VIAL IV SCH ×2 (13:23→21:40)
[2020-03-17 17:06] LABS: PLATELET ESTIMATE DECREASED
[2020-03-17] MEDS: METOCLOPRAMIDE HCL 10MG/2ML VIAL IV SCH (18:46)
[2020-03-17] MEDS: FAMOTIDINE 20MG TABLET GT SCH (21:40)
[2020-03-18] VITALS (12 sets, daily range): BP systolic 90–113; BP diastolic 51–73
[2020-03-18] MEDS: METOCLOPRAMIDE HCL 10MG/2ML VIAL IV SCH ×5 (00:52→23:35)
[2020-03-18] MEDS: SODIUM CHLORIDE 0.45% 1,000 ML IV SCH ×3 (02:11→18:24)
[2020-03-18] MEDS: IPRATROPIUM/ALBUTEROL 0.5-3(2.5)MG/3ML NEB HHN SCH ×4 (04:04→20:21)
[2020-03-18] MEDS: BLOOD SUGAR DIAGNOSTIC STRIP TEST SCH ×4 (06:00→23:35)
[2020-03-18] MEDS ORDERED: INSULIN LISPRO 100 UNITS/ML SUBCUT SCH (06:00)
[2020-03-18 06:11] LABS: CHLORIDE 112 mEq/L (98-107)
[2020-03-18 06:20] LABS: PHOSPHORUS 3.2 mg/dL (2.5-4.9)
[2020-03-18 06:24] LABS: HEMATOCRIT. 41.7 % (42.0-52.0); HEMOGLOBIN. 13.6 g/dL (14.0-18.0); MEAN CORPUSCULAR HEMOGLOBIN 31.1 pg (28.0-32.0); MEAN CORPUSCULAR VOLUME 95.1 fL (80.0-94.0); MEAN PLATELET VOLUME 10.7 fl (7.4-10.4); PLATELET 114 x1000/uL (130-400); RED BLOOD CELL COUNT 4.39 mill/uL (4.7-6.1); RED CELL DISTRIBUTION WIDTH 15.5 % (11.6-14.6)
[2020-03-18] MEDS: HYDROCORTISONE SOD SUCCINATE 100 MG/2 ML VIAL IV SCH ×3 (06:24→21:01)
[2020-03-18] MEDS: MEROPENEM 500MG in NORMAL SALINE 50ML IV SCH ×2 (06:24→17:44)
[2020-03-18] MEDS ORDERED: DEXTROSE 50% WATER 50ML SYRINGE IV PRN (07:00)
[2020-03-18] MEDS: INSULIN LISPRO 100 UNITS/ML SUBCUT SCH ×3 (07:31→17:36)
[2020-03-18] MEDS: LEVETIRACETAM 500MG/5ML CUP PO SCH ×2 (08:51→20:59)
[2020-03-18] MEDS: MIDODRINE HCL 5MG TABLET PO SCH ×3 (08:51→17:34)
[2020-03-18] MEDS ORDERED: INSULIN GLARGINE UD 100 UNITS/ML SYR SUBCUT SCH (10:00)
[2020-03-18 13:25] LABS: PLATELET ESTIMATE SLIGHTLY DECREASED
[2020-03-18] MEDS: FAMOTIDINE 20MG TABLET GT SCH (20:59)
[2020-03-19] VITALS (31 sets, daily range): BP systolic 91–147; BP diastolic 50–78
[2020-03-19] MEDS: INSULIN LISPRO 100 UNITS/ML SUBCUT SCH ×5 (01:04→23:17)
[2020-03-19] MEDS: IPRATROPIUM/ALBUTEROL 0.5-3(2.5)MG/3ML NEB HHN SCH ×4 (01:28→20:34)
[2020-03-19] MEDS: SODIUM CHLORIDE 0.45% 1,000 ML IV SCH ×2 (04:03→17:12)
[2020-03-19] MEDS: MEROPENEM 500MG in NORMAL SALINE 50ML IV SCH (05:34)
[2020-03-19] MEDS: METOCLOPRAMIDE HCL 10MG/2ML VIAL IV SCH ×4 (05:35→23:15)
[2020-03-19] MEDS: BLOOD SUGAR DIAGNOSTIC STRIP TEST SCH ×4 (05:36→23:17)
[2020-03-19] MEDS: HYDROCORTISONE SOD SUCCINATE 100 MG/2 ML VIAL IV SCH (05:36)
[2020-03-19 07:12] LABS: EOSINOPHILS % 0.1 % (0.0-5.0); HEMATOCRIT. 37.6 % (42.0-52.0); HEMOGLOBIN. 12.5 g/dL (14.0-18.0); LYMPHOCYTES % 8.7 % (20.0-50.0); MEAN CORPUSCULAR HEMOGLOBIN 30.5 pg (28.0-32.0); MEAN CORPUSCULAR VOLUME 91.2 fL (80.0-94.0); MEAN PLATELET VOLUME 10.6 fl (7.4-10.4); MONOCYTES % 10.3 % (2.0-8.0); NEUTROPHILS % 80.9 % (40.0-76.0); PLATELET 109 x1000/uL (130-400); RED BLOOD CELL COUNT 4.12 mill/uL (4.7-6.1); RED CELL DISTRIBUTION WIDTH 14.8 % (11.6-14.6)
[2020-03-19 07:36] LABS: PHOSPHORUS 3.3 mg/dL (2.5-4.9)
[2020-03-19] MEDS: LEVETIRACETAM 500MG/5ML CUP PO SCH ×2 (08:34→20:09)
[2020-03-19] MEDS: MIDODRINE HCL 5MG TABLET PO SCH ×3 (08:34→17:11)
[2020-03-19] MEDS: HYDROCORTISONE 10MG TABLET GT SCH ×2 (09:37→20:08)
[2020-03-19] MEDS: INSULIN GLARGINE UD 100 UNITS/ML SYR SUBCUT SCH (09:43)
[2020-03-19] MEDS: MEROPENEM 1000MG in NORMAL SALINE 100ML IV SCH (17:34)
[2020-03-19] MEDS ORDERED: VANCOMYCIN 750 MG PREMIX 150 ML IV NR (18:00)
[2020-03-19] MEDS: FAMOTIDINE 20MG TABLET GT SCH (20:08)
[2020-03-20] VITALS (15 sets, daily range): BP systolic 96–141; BP diastolic 52–73
[2020-03-20] MEDS: IPRATROPIUM/ALBUTEROL 0.5-3(2.5)MG/3ML NEB HHN SCH ×4 (02:18→21:06)
[2020-03-20] MEDS: MEROPENEM 1000MG in NORMAL SALINE 100ML IV SCH ×2 (05:05→18:08)
[2020-03-20] MEDS: SODIUM CHLORIDE 0.45% 1,000 ML IV SCH ×2 (05:05→23:06)
[2020-03-20] MEDS: BLOOD SUGAR DIAGNOSTIC STRIP TEST SCH ×4 (05:05→23:03)
[2020-03-20] MEDS: INSULIN LISPRO 100 UNITS/ML SUBCUT SCH ×4 (05:06→23:03)
[2020-03-20] MEDS: METOCLOPRAMIDE HCL 10MG/2ML VIAL IV SCH ×4 (05:08→23:05)
[2020-03-20 05:14] LABS: PHOSPHORUS 2.8 mg/dL (2.5-4.9)
[2020-03-20 06:43] LABS: BASOPHILS % 0.1 % (0.0-2.0); EOSINOPHILS % 0.5 % (0.0-5.0); HEMATOCRIT. 36.2 % (42.0-52.0); HEMOGLOBIN. 12.3 g/dL (14.0-18.0); LYMPHOCYTES % 15.7 % (20.0-50.0); MEAN CORPUSCULAR HEMOGLOBIN 30.7 pg (28.0-32.0); MEAN CORPUSCULAR VOLUME 90.4 fL (80.0-94.0); MEAN PLATELET VOLUME 10.5 fl (7.4-10.4); MONOCYTES % 14.2 % (2.0-8.0); NEUTROPHILS % 69.5 % (40.0-76.0); PLATELET 117 x1000/uL (130-400); RED CELL DISTRIBUTION WIDTH 14.6 % (11.6-14.6)
[2020-03-20] MEDS: MIDODRINE HCL 5MG TABLET PO SCH ×3 (08:30→18:30)
[2020-03-20] MEDS: LEVETIRACETAM 500MG/5ML CUP PO SCH ×2 (08:30→20:39)
[2020-03-20] MEDS: HYDROCORTISONE 10MG TABLET GT SCH ×2 (08:30→20:39)
[2020-03-20] MEDS: INSULIN GLARGINE UD 100 UNITS/ML SYR SUBCUT SCH (10:07)
[2020-03-20] MEDS: FAMOTIDINE 20MG TABLET GT SCH (20:39)
[2020-03-21] VITALS (10 sets, daily range): BP systolic 92–137; BP diastolic 50–73
[2020-03-21] MEDS: IPRATROPIUM/ALBUTEROL 0.5-3(2.5)MG/3ML NEB HHN SCH ×3 (02:22→14:31)
[2020-03-21] MEDS: BLOOD SUGAR DIAGNOSTIC STRIP TEST SCH ×2 (05:21→12:43)
[2020-03-21] MEDS: MEROPENEM 1000MG in NORMAL SALINE 100ML IV SCH (05:21)
[2020-03-21] MEDS: METOCLOPRAMIDE HCL 10MG/2ML VIAL IV SCH ×2 (05:21→12:42)
[2020-03-21] MEDS: INSULIN LISPRO 100 UNITS/ML SUBCUT SCH ×2 (05:23→12:53)
[2020-03-21 06:04] LABS: BASOPHILS % 0.2 % (0.0-2.0); EOSINOPHILS % 1.3 % (0.0-5.0); HEMATOCRIT. 35.7 % (42.0-52.0); LYMPHOCYTES % 14.5 % (20.0-50.0); MEAN CORPUSCULAR HEMOGLOBIN 30.2 pg (28.0-32.0); MEAN PLATELET VOLUME 10.3 fl (7.4-10.4); MONOCYTES % 12.7 % (2.0-8.0); NEUTROPHILS % 71.3 % (40.0-76.0); PLATELET 144 x1000/uL (130-400); RED BLOOD CELL COUNT 3.97 mill/uL (4.7-6.1); RED CELL DISTRIBUTION WIDTH 14.5 % (11.6-14.6)
[2020-03-21 06:10] LABS: PHOSPHORUS 2.7 mg/dL (2.5-4.9)
[2020-03-21] MEDS: HYDROCORTISONE 10MG TABLET GT SCH (09:00)
[2020-03-21] MEDS: LEVETIRACETAM 500MG/5ML CUP PO SCH (09:01)
[2020-03-21] MEDS: MIDODRINE HCL 5MG TABLET PO SCH ×2 (09:01→12:42)
[2020-03-21] MEDS: INSULIN GLARGINE UD 100 UNITS/ML SYR SUBCUT SCH (10:20)
== END 2020-03-21 15:30 | DRG 870 ==
LOC: ER 10:01 → 5EST 10:51 → EDBEDREQ 10:53 → EDBEDREQTM 10:53 → ENRESERV 21:16 → 5EST 03-13 00:45
PROVIDERS: ADMIT Internal Medicine; ATTEND Internal Medicine
PROC: 5A1955Z Respiratory Ventilation, Greater than 96 Consecutive Hours (ICD-10-PCS; principal; 2020-03-12)
PROC: 0D20XUZ Change Feeding Device in Upper Intestinal Tract, External Approach (ICD-10-PCS; 2020-03-13)
PROC: 05HY33Z Insertion of Infusion Device into Upper Vein, Percutaneous Approach (ICD-10-PCS; 2020-03-14)
PROC: B54MZZA Ultrasonography of Right Upper Extremity Veins, Guidance (ICD-10-PCS; 2020-03-14)
DX: A41.51 Sepsis due to Escherichia coli [E. coli] (principal); N17.0 Acute kidney failure with tubular necrosis; E43 Unspecified severe protein-calorie malnutrition; K94.22 Gastrostomy infection; L03.311 Cellulitis of abdominal wall; J95.851 Ventilator associated pneumonia; Z16.12 Extended spectrum beta lactamase (ESBL) resistance; J44.0 Chronic obstructive pulmonary disease with (acute) lower respiratory infection; E27.40 Unspecified adrenocortical insufficiency; E87.2 Acidosis; N39.0 Urinary tract infection, site not specified; J96.10 Chronic respiratory failure, unspecified whether with hypoxia or hypercapnia; K94.23 Gastrostomy malfunction; Z99.11 Dependence on respirator [ventilator] status; G93.40 Encephalopathy, unspecified; R04.2 Hemoptysis; J95.01 Hemorrhage from tracheostomy stoma; K31.9 Disease of stomach and duodenum, unspecified; E83.51 Hypocalcemia; E11.65 Type 2 diabetes mellitus with hyperglycemia; Y83.3 Surgical operation with formation of external stoma as the cause of abnormal reaction of the patient, or of later complication, without mention of misadventure at the time of the procedure; D69.59 Other secondary thrombocytopenia; R13.10 Dysphagia, unspecified; Z66 Do not resuscitate; Z20.828 Contact with and (suspected) exposure to other viral communicable diseases; E87.6 Hypokalemia; R00.1 Bradycardia, unspecified; G40.909 Epilepsy, unspecified, not intractable, without status epilepticus; Y92.238 Other place in hospital as the place of occurrence of the external cause; Y84.8 Other medical procedures as the cause of abnormal reaction of the patient, or of later complication, without mention of misadventure at the time of the procedure; I10 Essential (primary) hypertension; Z79.4 Long term (current) use of insulin; Z68.26 Body mass index [BMI] 26.0-26.9, adult
CPT/HCPCS: 36415; 36600; 71045; 74176; 76937; 80048; 80053; 80076; 80202; 81003; 82330; 82375; 82570; 82805; 82962; 83605; 83735; 83880; 84100; 84145; 84300; 84484; 85025; 87070; 87077; 87186; 87493; 93005; 94002; 94003; 94640; 99291; C1725; C9113; J0278; J0690; J1720; J1815; J2060; J2185; J2250; J2543; J2765; J3010; J3370; J3490; J7050; J7060; Q9963; U0003-CS